=== PATIENT | male | born 1970 | race Caucasian/White ===

== ENCOUNTER → 2016-08-13 | Outpatient (CLI) | payer BC ==
--- NOTE | 2016-08-13 10:11 | FL ---
EXAMINATION TYPE: FL UGI w esophagus DATE OF EXAM: 08/13/2016 9:54 AM COMPARISON: NONE HISTORY: Dysphasia TECHNIQUE: A double contrast UGI study is performed. FINDINGS: Commercial Insurance Underwriter image of the abdomen shows no gross abnormality. The esophagus shows normal motility and emptying into the stomach. No evidence of hiatal hernia or s tricture noted. The stomach shows normal distensibility, peristalsis, and mucosal folds. No evidence of any mass or ulcer disease. Small sliding hiatal hernia with mild gastroesophageal reflux. The duodenal sweep, and proximal small bowel loops are unremarkable. Mild fold thickening of the duo denum can be associated with mild duodenitis. IMPRESSION: 1. Mild gastroesophageal reflux with small sliding hiatal hernia. 2. Mild duodenitis
== END | disposition home or self-care (01) ==
LOC: RADFLWHC 09:21
PROVIDERS: ATTEND Family Medicine
DX: K21.9 Gastro-esophageal reflux disease without esophagitis (principal); K29.80 Duodenitis without bleeding; K44.9 Diaphragmatic hernia without obstruction or gangrene
CPT/HCPCS: 74240

== ENCOUNTER → 2018-03-06 | Outpatient (CLI) | payer BC ==
[2018-03-06 10:33] LABS: Basophils % (A) 0 %; Eosinophils # (A) 0.3 k/uL (0-0.7); Eosinophils % (A) 5 %; HCT 48.2 % (39.0-53.0); Lymphocytes # (A) 2.2 k/uL (1.0-4.8); Lymphocytes % (A) 39 %; MCHC 33.1 g/dL (31.0-37.0); MCV 87.5 fL (80.0-100.0); Mean Platelet Volume 8.2; Monocytes # (A) 0.4 k/uL (0-1.0); Monocytes % (A) 8 %; Neutrophils # (A) 2.7 k/uL (1.3-7.7); Neutrophils % (A) 47 %; Platelet Count 192 k/uL (150-450); RBC 5.51 m/uL (4.30-5.90); RDW 13.6 % (11.5-15.5); WBC 5.8 k/uL (3.8-10.6)
[2018-03-06 16:53] LABS: Albumin 4.5 g/dL (3.80-4.90); Albumin/Globulin Ratio 2.37 (1.20-2.10); Anion Gap 4.5 mmol/L (4.00-12.00); Calcium 9.5 mg/dL (8.7-10.3); Carbon Dioxide 28.5 mmol/L (21.6-31.8); Globulin 1.9 g/dL (2.1-3.7); LDL Cholesterol,Calculated 93.2 mg/dL (0.0-131.0); Total Bilirubin 0.7 mg/dL (0.2-1.2); Total Protein 6.4 g/dL (6.2-8.2); VLDL Calculation 18.8 mg/dL (5.00-40.00)
== END | disposition home or self-care (01) ==
LOC: LABWHC1 09:29
PROVIDERS: ATTEND Family Medicine
DX: Z00.00 Encounter for general adult medical examination without abnormal findings (principal)
CPT/HCPCS: 36415; 80053; 80061; 84153; 84443; 85025

== ENCOUNTER → 2020-06-28 | Outpatient (CLI) | payer BC ==
[2020-06-28 16:47] LABS: Basophils % (A) 0 %; Eosinophils # (A) 0.2 k/uL (0-0.7); Eosinophils % (A) 2 %; HCT 41.7 % (39.0-53.0); HGB 14.9 gm/dL (13.0-17.5); Lymphocytes # (A) 2.1 k/uL (1.0-4.8); Lymphocytes % (A) 31 %; MCH 30.8 pg (25.0-35.0); MCHC 35.8 g/dL (31.0-37.0); MCV 86.1 fL (80.0-100.0); Mean Platelet Volume 8.9; Monocytes # (A) 0.6 k/uL (0-1.0); Monocytes % (A) 9 %; Neutrophils # (A) 3.7 k/uL (1.3-7.7); Neutrophils % (A) 54 %; Platelet Count 231 k/uL (150-450); RBC 4.85 m/uL (4.30-5.90); RDW 13.6 % (11.5-15.5); WBC 6.8 k/uL (3.8-10.6)
[2020-06-28 17:07] LABS: ALT 136 U/L (4-49); AST 64 U/L (17-59); African American GFR (CKD) >90 (>60 ml/min/1.73 sqM); Albumin 4.4 g/dL (3.5-5.0); Alkaline Phosphatase 85 U/L (38-126); Anion Gap 8 mmol/L; Blood Urea Nitrogen 19 mg/dL (9-20); C Reactive Protein 6.5 mg/L (<10.0); Calcium 9.8 mg/dL (8.4-10.2); Carbon Dioxide 26 mmol/L (22-30); Chloride 107 mmol/L (98-107); Glucose 105 mg/dL (74-99); Non-African American GFR(CKD) 86 (>60 ml/min/1.73 sqM); Potassium 4.5 mmol/L (3.5-5.1); Sodium 141 mmol/L (137-145); Total Bilirubin 0.6 mg/dL (0.2-1.3); Total Protein 7.2 g/dL (6.3-8.2)
--- NOTE | 2020-06-29 08:56 | XR ---
EXAMINATION TYPE: XR chest 2V DATE OF EXAM: 06/28/2020 COMPARISON: NONE TECHNIQUE: PA and lateral views submitted. HISTORY: Pain FINDINGS: The lungs are clear and there is no pneumothorax, pleural effusion, or focal pneumonia. Heart size normal. No overt failure. Mild hyperinflation of the lungs correlate for asthma or COPD. IMPRESSION: 1. No acute process.
--- NOTE | 2020-06-29 08:57 | XR ---
EXAMINATION TYPE: XR KUB DATE OF EXAM: 06/28/2020 COMPARISON: NONE HISTORY: Pain TECHNIQUE: One view abdominal series FINDINGS: The osseous structures are intact. The bowel gas pattern is nonspecific. Retained fecal debris throu ghout the colon. IMPRESSION: 1. Nonspecific abdomen.
== END | disposition home or self-care (01) ==
LOC: RADXRMAIN 15:43
PROVIDERS: ATTEND Family Medicine
DX: R10.9 Unspecified abdominal pain (principal); R07.9 Chest pain, unspecified
CPT/HCPCS: 36415; 71046; 74018; 80053; 85025; 86140

== ENCOUNTER 2021-04-12 16:55 | Emergency (ER) | payer BC ==
--- NOTE | 2021-04-12 17:44 | XR ---
EXAMINATION TYPE: XR chest 1V portable DATE OF EXAM: 04/12/2021 COMPARISON: 06/28/2020 HISTORY: Pain TECHNIQUE: Single view FINDINGS: Heart and mediastinum are normal. Lungs are clear. Diaphragm is normal. Bony thorax appears normal. IMPRESSION: Normal chest. No change.
[2021-04-12] MEDS ORDERED: ONDANSETRON ODT 4 MG TAB PO STA (17:52)
--- NOTE | 2021-04-12 17:56 | ED ---
ENT HPI - General Chief complaint: ENT Stated complaint: Nausea/Vomiting Time Seen by Provider: 04/12/21 17:02 Source: family Mode of arrival: ambulatory Limitations: no limitations - History of Present Illness Initial comments: Patient presents with nausea and vomiting which began after eating a pork chop. He is unable to swallow anything. He has no chest pain or back pain or belly pain. He has nausea and has vomiting. He has no headache or lightheadedness or dizziness. He has no fevers or chills. - Related Data Previous Rx's Medication Instructions Recorded Ondansetron Odt [Zofran Odt] 4 mg PO Q8HR PRN #10 tab 04/12/21 Allergies Allergy/AdvReac Type Severity Reaction Status Date / Time No Known Allergies Allergy Verified 04/12/21 16:56 Review of Systems ROS Statement: Those systems with pertinent positive or pertinent negative responses have been documented in the HPI. ROS Other: All systems not noted in ROS Statement are negative. Past Medical History Past Medical History: No Reported History History of Any Multi-Drug Resistant Organisms: None Reported Past Surgical History: No Surgical Hx Reported Past Psychological History: No Psychological Hx Reported Smoking Status: Never smoker Past Alcohol Use History: None Reported Past Drug Use History: None Reported General Exam Limitations: no limitations General appearance: alert Head exam: Present: atraumatic Eye exam: Present: normal appearance ENT exam: Present: normal exam Neck exam: Present: normal inspection Respiratory exam: Absent: respiratory distress Extremities exam: Present: normal inspection Back exam: Present: normal inspection Neurological exam: Present: alert, oriented X3 Psychiatric exam: Present: normal affect, normal mood Course Vital Signs 04/12/21 16:56 Temperature 97.0 F L Pulse Rate 83 Respiratory 20 Rate Blood Pressure 141/89 O2 Sat by Pulse 100 Oximetry Medical Decision Making - Medical Decision Making Patient presents with nausea and vomiting after eating a pork chop. He is given Zofran ODT. He is given a physical drink. The obstruction has clearly past as he is now tolerating oral intake. Chest x-rays negative for aspiration or any other acute processes. He is stable for discharge. Disposition Clinical Impression: Food bolus obstruction of intestine Disposition: HOME SELF-CARE Condition: Good Instructions (If sedation given, give patient instructions): Esophageal Spasm (ED) Prescriptions: Ondansetron Odt [Zofran Odt] 4 mg PO Q8HR PRN #10 tab PRN Reason: Nausea Is patient prescribed a controlled substance at d/c from ED?: No Referrals: Jet Todd MD [Primary Care Provider] - 1-2 days France Lopez MD [STAFF PHYSICIAN] - 1-2 days
[2021-04-12 18:13] VITALS: BP 148/88; PULSE 79; RESP 18; TEMP 98.5
== END 2021-04-12 18:10 | disposition home or self-care (01) ==
LOC: EC 16:55
DX: K56.609 Unspecified intestinal obstruction, unspecified as to partial versus complete obstruction (principal)
CPT/HCPCS: 71045; 99284

== ENCOUNTER → 2021-05-04 | Outpatient (CLI) | payer BC ==
[2021-05-04 11:33] LABS: Basophils # (A) 0.03 X 10*3/uL (0.00-0.10); Basophils % (A) 0.5 %; Eosinophils # (A) 0.25 X 10*3/uL (0.04-0.35); Eosinophils % (A) 4.1 %; HCT 48.2 % (39.6-50.0); Immature Grans, Automated 0.2 %; Lymphocytes # (A) 2.38 X 10*3/uL (0.90-5.00); Lymphocytes % (A) 39.5 %; MCH 29.1 pg (27.0-32.0); MCHC 33.2 g/dL (32.0-37.0); MCV 87.6 fL (80.0-97.0); Mean Platelet Volume 11.7 fL (9.5-12.2); Monocytes # (A) 0.67 X 10*3/uL (0.20-1.00); Monocytes % (A) 11.1 %; NRBC Per 100 WBC 0 /100 WBCS (0.0-0.0); Neutrophils # (A) 2.69 X 10*3/uL (1.80-7.70); Neutrophils % (A) 44.6 %; Platelet Count 216 X 10*3/uL (140-440); RDW 12.9 % (11.5-14.5); WBC 6.03 X 10*3/uL (4.50-10.00)
[2021-05-04 12:07] LABS: ALT 28 U/L (10-49); AST 20 U/L (14-35); African American GFR (CKD) 93.1 (60.0-200.0); Albumin 4.7 g/dL (3.8-4.9); Alkaline Phosphatase 63 U/L (41-126); BUN/Creat Ratio 17.26 Ratio (12.00-20.00); Blood Urea Nitrogen 18.3 mg/dL (9.0-27.0); Calcium 9.4 mg/dL (8.7-10.3); Carbon Dioxide 24.4 mmol/L (20.0-27.5); Chloride 104 mmol/L (96-109); Chol/HDL Ratio 3.15 Ratio; Globulin 2.5 g/dL (1.6-3.3); Glucose 96 mg/dL (70-110); LDL Cholesterol,Calculated 115.7 mg/dL (0.0-131.0); Non-African American GFR(CKD) 80.3 (60.0-200.0); Potassium 4.4 mmol/L (3.5-5.5); Sodium 138 mmol/L (135-145); Total Protein 7.1 g/dL (6.2-8.2)
== END | disposition home or self-care (01) ==
LOC: LABWHC1 08:07
PROVIDERS: ATTEND Family Medicine
DX: Z00.00 Encounter for general adult medical examination without abnormal findings (principal); Z12.5 Encounter for screening for malignant neoplasm of prostate; E55.9 Vitamin D deficiency, unspecified
CPT/HCPCS: 80061; 80053; 84443; 85025; 82306; 36415; G0103

== ENCOUNTER 2023-12-02 10:48 | Emergency (ER) | payer BC ==
[2023-12-02 10:56] VITALS: TEMP 98.1
--- NOTE | 2023-12-02 11:14 | ED ---
ENT HPI - General Chief complaint: ENT Stated complaint: something lodged in throat Time Seen by Provider: 12/02/23 11:13 Source: patient, RN notes reviewed Mode of arrival: ambulatory Limitations: no limitations - History of Present Illness Initial comments: 53-year-old male presenting to the ER with a chief complaint of esophageal foreign body. Patient reports yesterday while eating chicken for dinner a piece got lodged in his esophagus. He has tried drinking Coca-Cola to relieve the blockage but has been unsuccessful. He states he would drink anything and immediately throw it up. He states he is constantly spitting up his saliva. He states this has happened in the past and had an EGD performed and it was negative. He denies any difficulty breathing, shortness of breath. - Related Data Home Medications Medication Instructions Recorded Confirmed No Known Home Medications 12/02/23 12/02/23 Allergies Allergy/AdvReac Type Severity Reaction Status Date / Time bee venom protein (honey bee) Allergy Anaphylaxis Verified 12/02/23 15:24 Review of Systems ROS Statement: Those systems with pertinent positive or pertinent negative responses have been documented in the HPI. ROS Other: All systems not noted in ROS Statement are negative. Past Medical History Past Medical History: No Reported History History of Any Multi-Drug Resistant Organisms: None Reported Past Surgical History: No Surgical Hx Reported Past Psychological History: No Psychological Hx Reported Smoking Status: Never smoker Past Alcohol Use History: None Reported Past Drug Use History: None Reported General Exam Limitations: no limitations Course Vital Signs 12/02/23 12/02/23 10:54 14:15 Temperature 98.1 F 98.1 F Pulse Rate 77 73 Respiratory 20 18 Rate Blood Pressure 164/98 133/80 O2 Sat by Pulse 99 95 Oximetry - Reevaluation(s) Reevaluation #1: 12/02/23 11:19 Patient attempted to consume water. This was unsuccessful as patient immediately spit up amount consumed. 12/02/23 12:00 Patient reevaluated after medication. Patient attempted to consume olivia maggie. Patient immediately spit up consumed contents. No signs of acute distress. 12/02/23 13:10 Case discussed with GI, Dr. Lopez, who states she will take the patient for EGD. Medical Decision Making - Medical Decision Making Was pt. sent in by a medical professional or institution (, PA, HOUSING OFFICER, urgent care, hospital, or care home...) When possible be specific @ -No Did you speak to anyone other than the patient for history (EMS, parent, family, police, friend...)? What history was obtained from this source @ -No Did you review nursing and triage notes (agree or disagree)? Why? @ -I reviewed and agree with nursing and triage notes Were old charts reviewed (outside hosp., previous admission, EMS record, old EKG, old radiological studies, urgent care reports/EKG's, care home records)? Report findings @ -No old charts were reviewed Differential Diagnosis (chest pain, altered mental status, abdominal pain women, abdominal pain men, vaginal bleeding, weakness, fever, dyspnea, syncope, headache, dizziness, GI bleed, back pain, seizure, CVA, palpatations, mental health, musculoskeletal)? @ -Esophageal strictures,esophageal foreign body, strep pharyngitis, COVID data that this list is not meant to be all-inclusive EKG interpreted by me (3pts min.). @ -None done X-rays interpreted by me (1pt min.). @ -None done CT interpreted by me (1pt min.). @ -None done U/S interpreted by me (1pt. min.). @ -None done What testing was considered but not performed or refused? (CT, X-rays, U/S, labs)? Why? @ -None What meds were considered but not given or refused? Why? @ -None Did you discuss the management of the patient with other professionals (professionals i.e. , PA, HOUSING OFFICER, lab, RT, psych nurse, rn social work, map editor, teacher, tactical response group officer, top case assembler)? Give summary @ -Case discussed with GI, Dr. Lopez. who will take patient to endoscopy for EGD for further evaluation. Was smoking cessation discussed for >3mins.? @ -No Was critical care preformed (if so, how long)? @ -No Were there social determinants of health that impacted care today? How? (Homelessness, low income, unemployed, alcoholism, drug addiction, transportation, low edu. Level, literacy, decrease access to med. care, skilled nursing, rehab)? @ -No Was there de-escalation of care discussed even if they declined (Discuss DNR or withdrawal of care, Hospice)? DNR status @ -No What co-morbidities impacted this encounter? (DM, HTN, Smoking, COPD, CAD, Cancer, CVA, ARF, Chemo, Hep., AIDS, mental health diagnosis, sleep apnea, morbid obesity)? @ -None Was patient admitted / discharged? Hospital course, mention meds given and route, prescriptions, significant lab abnormalities, going to OR and other pertinent info. @ - Diacharged. 53-year-old male presented to the ER with a chief complaint of esophageal foreign body. History and physical exam completed. Vitals within normal limits. Patient in no signs of acute distress and nontoxic-appearing. Exam unremarkable. Patient attempted to consume a sip of water which was unsuccessful as he immediately spit it up. IV glucagon and Valium given with olivia maggie which was also unsuccessful. Dr. Lopez, GI, contacted at that time. She states she will take patient to endoscopy for EGD for further evaluation. Patient taken to endoscopy at 1314. Upon evaluation of operative notes large food bolus was removed. Patient return to the ER at 1350. Patient monitored in the ER until clinically stable after sedation. Patient remained stable throughout ER stay. Results discussed with patient, all questions answered. Omeprazole prescribed. Advise close follow-up with Dr. Lopez in 2 weeks as stated in operative notes. Return parameters discussed. Patient discharged in stable condition. Case discussed with ED attending, Dr. Chew. Undiagnosed new problem with uncertain prognosis? @ -No Drug Therapy requiring intensive monitoring for toxicity (Heparin, Nitro, Insulin, Cardizem)? @ -No Were any procedures done? @ -No Diagnosis/symptom? @ -Esophageal foreign body Acute, or Chronic, or Acute on Chronic? @ -Acute Uncomplicated (without systemic symptoms) or Complicated (systemic symptoms)? @ -Uncomplicated Side effects of treatment? @ -No Exacerbation, Progression, or Severe Exacerbation? @ -No Poses a threat to life or bodily function? How? (Chest pain, [place], VT, pneumonia, PE, COPD, DKA, ARF, appy, cholecystitis, CVA, Diverticulitis, Homicidal, Suicidal, threat to staff... and all critical care pts) @ -No Disposition Clinical Impression: Esophageal foreign body Disposition: HOME SELF-CARE Condition: Stable Instructions (If sedation given, give patient instructions): Hiatal Hernia (DC), Esophageal Foreign Body (ED), Esophageal Stricture (ED), Moderate Sedation (ED) Additional Instructions: I advised a soft food diet. Cut food into small pieces. Follow-up with Dr. Lopez in 2 weeks. Start taking omeprazole 20 mg daily. Return to the ER for any new or worsening concerns. Is patient prescribed a controlled substance at d/c from ED?: No Referrals: Jet Todd [Primary Care Provider] - 1-2 days France Lopez MD [STAFF PHYSICIAN] - 1-2 days Time of Disposition: 15:17
[2023-12-02] MEDS: GLUCAGON 1 MG/ML VIAL IVP STA (11:36)
[2023-12-02] MEDS ORDERED: MIDAZOLAM 2 MG/2 ML VIAL ONE (13:17)
[2023-12-02] MEDS ORDERED: LIDOCAINE 1% INJ 10MG/ML (20 ML MDV) ONE (13:17)
[2023-12-02] MEDS ORDERED: PROPOFOL 10 MG/ML 20 ML VIAL IV ONE (13:17)
[2023-12-02] MEDS: SODIUM CHLORIDE 0.9% 500 ML 500 ML IV ONE ×2 (13:20→13:34)
--- NOTE | 2023-12-02 13:34 | P.CONS ---
History of Present Illness - Reason for Consult Consult date: 12/02/23 Requesting physician: Jet Todd - Chief Complaint Acute food impaction - History of Present Illness Patient is effectively in a pleasant white male came to the emergency room a couple of hours ago with acute food impaction. He was eating chicken for dinner yesterday and he could not swallow any further. In the ER he was given some glucagon and Reglan with no help. He had a similar episode approximately 3 years ago that lasted for a couple of hours and spontaneously resolved. He has been having intermittent dysphagia to solids on and off for the last 3 years. He was investigated with an upper endoscopy in 2020 and according to the patient no etiology was identified. He denies any heartburn. No odynophagia. Review of Systems REVIEW OF SYSTEMS: CARDIOPULMONARY: No chest pain or shortness of breath. GENITOURINARY: No dysuria or hematuria. MUSCULOSKELETAL: Unremarkable. SKIN: Unremarkable. ENDOCRINE: Unremarkable. PSYCHIATRIC: Unremarkable. NEUROLOGY: Unremarkable. ENT: Vision unremarkable. CONSTITUTIONAL: No recent weight loss. No fever, chills, night sweats. Past Medical History Past Medical History: No Reported History History of Any Multi-Drug Resistant Organisms: None Reported Past Surgical History: No Surgical Hx Reported Past Psychological History: No Psychological Hx Reported Smoking Status: Never smoker Past Alcohol Use History: None Reported Past Drug Use History: None Reported Medications and Allergies Home Medications Medication Instructions Recorded Confirmed Type Immuno-Zinc Lozenges With 1 - 2 lozenge MUCOUS MEM BID PRN 04/12/21 04/12/21 History Elderberry Life 9 Probiotic 1 tab PO HS 04/12/21 04/12/21 History Ondansetron Odt [Zofran Odt] 4 mg PO Q8HR PRN #10 tab 04/12/21 Rx Para-Chord - Energetix 10 drops PO BID PRN 04/12/21 04/12/21 History Pro [place] 2 tab PO DAILY 04/12/21 04/12/21 History Super Vitamin D 1 tab PO DAILY 04/12/21 04/12/21 History Allergies Allergy/AdvReac Type Severity Reaction Status Date / Time bee venom protein (honey bee) Allergy Anaphylaxis Verified 12/02/23 10:57 Physical Exam Vitals: Vital Signs Temp Pulse Resp BP Pulse Ox 12/02/23 10:54 98.1 F 77 20 164/98 99 Intake and Output 12/01/23 12/02/23 12/02/23 22:59 06:59 14:59 Other: Weight 89.811 kg EGD examination unremarkable Conjunctiva pink sclera anicteric NECK NO JVD OR LYMPH NODE ENLARGEMENT Chest clear to auscultation heart regular rate and rhythm Abdomen soft bowel sounds are positive no organomegaly extremities no pedal edema Skin no rashes Neuro alert and oriented times no focal deficits Assessment and Plan (1) Dysphagia Narrative/Plan: Patient is present to the emergency room with acute food impaction. He was eating a piece of chicken last night and could not swallow any further. Had a similar symptoms of approximately 3 years ago that spontaneously resolved. Has been having intermittent dysphagia Current Visit: Yes Status: Acute Code(s): R13.10 - DYSPHAGIA, UNSPECIFIED SNOMED Code(s): 89942916 Plan: Will proceed with EGD with foreign body removal. Patient understands risk, benefits and complications of the procedure. Thank you for this consultation. Time with Patient: Less than 30
--- NOTE | 2023-12-02 13:37 | P.PCN ---
Date of Procedure: 12/02/23 Procedure(s) Performed: BRIEF HISTORY: Patient is a 53-year-old, pleasant, white male with history of intermittent dysphagia with solids came to the emergency room with acute food impaction. He was eating a piece of chicken last night and could not swallow any further. He is cared for an upper endoscopy with foreign body removal PROCEDURE PERFORMED: Esophagogastroduodenoscopy with foreign body removal and biopsy. PREOPERATIVE DIAGNOSIS: Acute food impaction. IV sedation per anesthesia. PROCEDURE: After informed consent was obtained, the patient was brought into the endoscopy unit. IV sedation was administered by Anesthesia under continuous monitoring. Initially the Olympus GIF-140 video endoscope was inserted into the mouth. Esophagus intubated without any difficulty. It was gradually advanced into the distal esophagus where there was a large food bolus impacted. Using a tripod I was able to gently push the meat bolus into the stomach. Scope was then advanced into the stomach and duodenum and carefully examined. The bulb and the second part of the duodenum appeared normal. The scope at this time was withdrawn to the stomach, adequately insufflated with air, and upon careful examination, mucosa of the antrum, body, cardia and the fundus appeared normal. The scope was then withdrawn into the esophagus. Moderate size hiatal hernia. The GE junction was located at 39 cm from the incisors. There was distal esophageal stricture identified. The entire esophagus had multiple superficial mucosal rings with longitudinal ridges and fibrosis and thickened mucosal folds all consistent with eosinophilic esophagitis and multiple biopsies were done from mid and distal esophagus. The rest of the esophagus appeared normal and the patient tolerated the procedure well. IMPRESSION: 1. Large food bolus impacted in the distal esophagus s/p removal as described above. 2. Multiple superficial mucosal rings with corrugated appearance of the entire esophagus, longitudinal ridges and follows and distal esophageal stricture all consistent with eosinophilic esophagitis s/p multiple biopsies. 3. Moderate size hiatal hernia RECOMMENDATIONS: The findings of this examination were discussed with the patient as well as his family. He was advised to be on soft diet today. Cut meat into small pieces. Follow-up with the biopsy results. Start omeprazole 20 mg daily and follow antireflux measures follow-up in the office in 2 weeks..
[2023-12-02 14:19] VITALS: BP 133/80; PULSE 73; RESP 18
== END 2023-12-02 16:06 | disposition home or self-care (01) ==
LOC: EC 10:48
CPT/HCPCS: 43239; 43247; 88305; 96374; 96375; 99284